=== PATIENT | female | born 2000 | race African-American/Black ===

== ENCOUNTER 2022-09-10 14:32 | Emergency (ER) | payer MEDICAID, OTHER ==
[~2022-09-10] VITALS: Ht 167.6 cm; Wt 60.0 kg
[2022-09-10 15:11] VITALS: BP 140/60
[2022-09-10] MEDS ORDERED: SODIUM CHLORIDE 0.9% 1000ML BAG (SEPSIS BOLUS) IV ONE (18:30)
== END 2022-09-10 23:18 | disposition left against medical advice (07) ==
LOC: ER 14:32
DX: R53.1 Weakness (principal); R42 Dizziness and giddiness; Z98.890 Other specified postprocedural states
CPT/HCPCS: 99281; J7030

== ENCOUNTER 2024-01-16 00:42 | Emergency (ER) | payer OTHER ==
[~2024-01-16] VITALS: Ht 162.6 cm; Wt 49.0 kg
[2024-01-16 00:45] VITALS: BP 115/66; RESP 16; O2SAT 100
[2024-01-16 00:46] VITALS: PULSE 105
[2024-01-16] MEDS: DEXAMETHASONE 1MG TABLET PO ONE (01:15)
[2024-01-16] MEDS ORDERED: AMOX-494 MT (01:15)
[2024-01-16 01:26] VITALS: TEMP 98.5
[2024-01-16] MEDS: ACETAMINOPHEN 325MG TABLET PO ONE (01:26)
[2024-01-16] MEDS: DEXAMETHASONE 4MG TABLET PO NR (01:41)
== END 2024-01-16 02:17 | disposition home or self-care (01) ==
LOC: ER 00:42
DX: J02.9 Acute pharyngitis, unspecified (principal)
CPT/HCPCS: 99283; J8540 ×2